=== PATIENT | female | born 1960 | race Caucasian/White ===

== ENCOUNTER 2021-08-25 16:36 | Emergency (ER) | payer OTHER, SELFPAY ==
--- NOTE | ~2021-08-25 | XR_ITS ---
EXAMINATION: XR knee LT min 4V DATE: 08/25/2021 17:34 INDICATION: Anterior left knee pain post fall one half weeks prior TECHNIQUE: Anteroposterior, 2 oblique and crosstable lateral views of the affected knee were obtained COMPARISON: None. FINDINGS: Alignment is normal. No fracture. Joint spaces appear normal on nonweightbearing imaging. No joint e ffusion/layering lipohemarthrosis. Soft tissues are unremarkable. IMPRESSION: 1. Negative left knee radiographs. Reviewed, dictated and finalized at location A.
[2021-08-25 16:47] VITALS: BP 135/72; PULSE 81; RESP 16; TEMP 36.8; O2SAT 97
--- NOTE | 2021-08-25 17:11 | ED.LOWEXIN ---
HPI - Extremity Injury (Lower) General Chief Complaint: Extremity Injury, Lower Stated Complaint: L KNEE INJURY Time Seen by Provider: 08/25/21 17:10 Source: patient, RN notes reviewed and old records reviewed Mode of arrival: ambulatory Limitations: no limitations History of Present Illness HPI Narrative: 61-year-old female who presents [facility] with complaints of injury to her left knee which occurred on August 11, 2021 when she fell at work. Patient states some one had sprayed bug spray on floor and she slipped on it and fell directly on to her left knee. Patient reports that she still has some pain in her left knee right below the knee cap and she states that sometimes it pops. Patient has no acute swelling to left knee, knee stability intact, some tenderness noted on palpation below knee cap. MD complaint: knee injury (Left) Onset (ago): week(s) (2 weeks ago) Injury: Left: knee Place: work Related Data Home Medications Medication Instructions Recorded Confirmed atorvastatin [Lipitor] 08/25/21 magnesium oxide mg 08/25/21 metoprolol succinate PO 08/25/21 trazodone 08/25/21 venlafaxine mg PO 08/25/21 Allergies Allergy/AdvReac Type Severity Reaction Status Date / Time acetaminophen Allergy Mild Vomiting Verified 04/10/18 19:17 ibuprofen Allergy Mild Vomiting Verified 04/10/18 19:17 oxycodone Allergy Mild Vomiting Verified 04/10/18 19:17 prochlorperazine Allergy Mild Other Verified 04/10/18 19:17 Review of Systems Review of Systems: CONSTITUTIONAL: Denies fever, chills, or sweats. EYES: Denies visual changes, redness, or discharge. ENT: Denies rhinorrhea, congestion, sore throat, or otalgia. CARDIOVASCULAR: Denies chest pain, palpitations, or edema. RESPIRATORY: Denies cough or dyspnea. GASTROINTESTINAL: Denies abdominal pain, nausea, vomiting, or diarrhea. GENITOURINARY: Denies dysuria or hematuria. SKIN: Denies rash or itching. MUSCULOSKELETAL: Denies back pain,positive for left knee pain, or myalgia. NEUROLOGIC: Denies headache, numbness, or weakness. PSYCHIATRIC: Positive for history of anxiety or depression. All systems reviewed & are unremarkable except as noted in HPI and below PMFSH Past Medical History Medical History (Updated 08/25/21 @ 21:31 by Audrey Iqbal NP) Anxiety and depression Elevated cholesterol Meniere's disease, bilateral SVT (supraventricular tachycardia) Surgical History Surgical History (Updated 08/25/21 @ 21:31 by Audrey Iqbal NP) History of lumpectomy radiation 2004 Previous section Social History Social History (Updated 08/25/21 @ 21:32 by Audrey Iqbal NP) Smoking status: Never smoker Alcohol intake: unknown Substance use type: does not use Living arrangements: with family Gender identity (if verbalized by the patient): Female Comments At time of signature, agree with nursing past medical, surgical, social and family history. There is no relevant family history pertinent to the presenting complaint Exam Narrative: GENERAL: Well-appearing, well-nourished, and in no acute distress. HEAD: Normocephalic, atraumatic. EYES: PERRLA and EOMI. ENT: Nares clear, no rhinorrhea or epistaxis. Mucous membranes moist.TM's normal with good light reflex, throat pink with no tonsil swelling. NECK: Supple.no lymphadenopathy CHEST: Clear to auscultation. No respiratory distress. HEART: Regular rate and rhythm. No murmur heard. Normal peripheral pulses. ABDOMEN: Soft, nontender, nondistended, normal active bowel sounds. EXTREMITIES: Normal range of motion. No edema.Discomfort to area below left knee cap, no swelling noted, Mobility sensation and circulation is intact to left leg, ambulates with steady gait. SKIN: Warm, dry, no rash. NEURO: No focal deficits. Alert and oriented x3. Course Course Level of Care: Express Care Visit Vital Signs Vital signs: Vital Signs Temperature 36.8 C 08/25/21 16:47 Pulse Rate 81 08/25/21 16:47 Respi
== END 2021-08-25 18:00 | disposition home or self-care (01) ==
PROVIDERS: Emergency Provider Registered Nurse
DX: S80.02XA Contusion of left knee, initial encounter (principal); W01.0XXA Fall on same level from slipping, tripping and stumbling without subsequent striking against object, initial encounter; Y99.0 Civilian activity done for income or pay; E78.00 Pure hypercholesterolemia, unspecified; F41.9 Anxiety disorder, unspecified; F32.A Depression, unspecified; H81.09 Meniere's disease, unspecified ear
CPT/HCPCS: 73564; 99203; G0463